=== PATIENT | female | born 2000 | race Caucasian/White ===

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

== ENCOUNTER 2022-07-07 21:38 | Emergency (ER) | payer OTHER ==
[~2022-07-07] VITALS: Ht 167.7 cm; Wt 81.4 kg
[2022-07-07] MEDS ORDERED: ONDA4TAB11 PO (21:59)
--- NOTE | 2022-07-07 21:59 | ED GI ---
General Chief Complaint: Lower Extremity Stated Complaint: VOMITING - DIARRHEA Nursing Triage Note: PT ARRIVAL TO ER VIA PRIVATE VEHICLE WITH COMPLAINTS OF N/V SINCE 1699. PT STATES THAT SHE HAS AN UPSET STOMACH, AND HAS TRIED SOME PEPTO WITH NO IMPROVEMENT. PT STATES THAT SHE HASN'T ATE OR DRANK MUCH TODAY. Source of Information: Patient Exam Limitations: No Limitations History of Present Illness Date Seen by Provider: Jul 07, 2022 Time Seen by Provider: 21:44 Initial Comments Patient to ER by private conveyance with her significant other and chief complaint that since 1699 today she been having nausea vomiting and nonbloody diarrhea. She took some Pepto-Bismol. She does not have anything for nausea. She is not having any fevers or chills. No abdominal pain. She has no other significant medical or surgical history. She has no sick contacts. She last ate at 1400, noodles and Gatorade. Allergies and Home Medications Allergies Uncoded Allergies: PENICILLIN (Adverse Reaction, Intermediate, Hives, 03/11/15) Patient Home Medication List Home Medication List Reviewed: Yes Hydrocodone/Acetaminophen (Hydrocodone/Acetaminophen 5 MG/325 MG TAB) 1 Each Tablet, 1 EACH PO Q6H PRN for PAIN-MODERATE Prescribed by: HIWOT WILSON on 08/21/18 1733 Mupirocin (Bactroban Tube) 22 Gm Oint, 22 GM EXT UD Prescribed by: RADHA MORE on 03/11/15 161 Ondansetron (Ondansetron Odt) 4 Mg Tab.rapdis, 4-8 MG PO Q6H PRN for NAUSEA/VOMITING Prescribed by: KERMIT RUIZ on 07/07/22 2159 Trazodone Hcl (Desyrel) 100 Mg Tablet, 100 MG PO HS, (Reported) Entered as Reported by: SHARON DANIELS on 03/11/15 1538 Trimethoprim/Sulfamethoxazole (Bactrim DS) 1 Ea Tablet, 1 TAB PO BID Prescribed by: RADHA MORE on 03/11/15 161 [Bcp] , (Reported) Entered as Reported by: SHARON DANIELS on 03/11/15 1538 Review of Systems Review of Systems Constitutional: No chills, No diaphoresis EENTM: No Blurred Vision, No Double Vision Respiratory: Denies Cough, Denies Shortness of Air Cardiovascular: Denies Chest Pain, Denies Lightheadedness Gastrointestinal: Denies Constipated; Diarrhea, Nausea, Vomiting Genitourinary: Denies Burning, Denies Drainage Musculoskeletal: No back pain, No joint pain All Other Systems Reviewed Negative Unless Noted: Yes Past Ioaziom-Ipfgvq-Gueuzi Hx Patient Social History Tobacco Use?: No Use of E-Cig and/or Vaping dev: No Substance use?: No Alcohol Use?: No Pt feels they are or have been: No Immunizations Up To Date Tetanus Booster (TDap): Less than 5yrs PED Vaccines UTD: Yes Influenza Vaccine Up-to-Date: No; Not Current Second COVID19 Vaccination Aniceto: 02/27 COVID19 Vaccine [employer] Consult[employer]: [employer] Seasonal Allergies Seasonal Allergies: No Past Medical History Surgeries: No Respiratory: No Cardiac: No Neurological: No Reproductive Disorders: Yes (BCP for poss early endometriosis) Gastrointestinal: No Musculoskeletal: No Endocrine: No Cancer: No Psychosocial: Yes (Panic disorder) Anxiety Integumentary: No Blood Disorders: No Family Medical History No Pertinent Family Hx Physical Exam Vital Signs Vital Signs - First Documented 07/07/22 21:45 Pulse 112 Resp 16 B/P (MAP) 133/80 (97) Pulse Ox 97 O2 Delivery Room Air Capillary Refill : Less Than 3 Seconds Height/Weight/BMI Height: 5'5.00" Weight: 155lbs. oz. [id number]; 28.00 BMI Method:Stated General Appearance: WD/WN, no apparent distress HEENT: PERRL/EOMI, TMs normal; No pharynx normal (Dry oral pharynx without any erythema or injection), No tonsillar exudate Neck: full range of motion, normal inspection Respiratory: no respiratory distress, no accessory muscle use Cardiovascular: normal peripheral pulses, regular rate, rhythm, no edema Peripheral Pulses: 2+ Radial Pulses (R), 2+ Radial Pulses (L) Gastrointestinal: normal bowel sounds, non tender, soft, no organomegaly Neurologic/Psychiatric: alert, normal mood/affect, oriented x 3 Progress/Results/Core Measures Results/Orders Lab Results Laboratory Tests Test 07/07/22 22:16 07/07/22 22:55 Range/Units White Blood Count 17.1 H 4.3-11.0 10^3/uL Red Blood Count 5.42 H 3.80-5.11 10^6/uL Hemoglobin 14.1 11.5-16.0 g/dL Hematocrit 44 35-52 % Mean Corpuscular Volume 80 80-99 fL Mean Corpuscular Hemoglobin 26 25-34 pg Mean Corpuscular Hemoglobin Concent 32 32-36 g/dL Red Cell Distribution Width 13.4 10.0-14.5 % Platelet Count 276 130-400 10^3/uL Mean Platelet Volume 11.3 9.0-12.2 fL Immature Granulocyte % (Auto) 0 % Neutrophils (%) (Auto) 86 H 42-75 % Lymphocytes (%) (Auto) 6 L 12-44 % Monocytes (%) (Auto) 7 0-12 % Eosinophils (%) (Auto) 0 0-10 % Basophils (%) (Auto) 0 0-10 % Neutrophils # (Auto) 14.7 H 1.8-7.8 10^3/uL Lymphocytes # (Auto) 1.1 1.0-4.0 10^3/uL Monocytes # (Auto) 1.1 H 0.0-1.0 10^3/uL Eosinophils # (Auto) 0.1 0.0-0.3 10^3/uL Basophils # (Auto) 0.1 0.0-0.1 10^3/uL Immature Granulocyte # (Auto) 0.1 0.0-0.1 10^3/uL Neutrophils % (Manual) 85 % Lymphocytes % (Manual) 6 % Monocytes % (Manual) 4 % Eosinophils % (Manual) 1 % Basophils % (Manual) 1 % Band Neutrophils 3 % Blood Morphology Comment NORMAL Sodium Level 141 135-145 MMOL/L Potassium Level 3.8 3.6-5.0 MMOL/L Chloride Level 107 98-107 MMOL/L Carbon Dioxide Level 19 L 21-32 MMOL/L Anion Gap 15 H 5-14 MMOL/L Blood Urea Nitrogen 9 7-18 MG/DL Creatinine 0.82 0.60-1.30 MG/DL Estimat Glomerular Filtration Rate 104 BUN/Creatinine Ratio 11 Glucose Level 125 H 70-105 MG/DL Calcium Level 9.7 8.5-10.1 MG/DL Corrected Calcium 8.5-10.1 MG/DL Total Bilirubin 0.5 0.1-1.0 MG/DL Aspartate Amino Transf (AST/SGOT) 20 5-34 U/L Alanine Aminotransferase (ALT/SGPT) 13 0-55 U/L Alkaline Phosphatase 97 40-136 U/L Total Protein 8.4 H 6.4-8.2 GM/DL Albumin 4.7 H 3.2-4.5 GM/DL Lipase 28 8-78 U/L My Orders Orders - KERMIT RUIZ Ed Iv/Invasive Line Start (07/07/22 21:50) Lactated Ringers (Lr 1000 Ml Iv Solution (07/07/22 22:00) Ondansetron Injection (Zofran Injectio (07/07/22 22:00) Pantoprazole Injection (Protonix Injecti (07/07/22 22:00) Rx-Ondansetron Po (Rx-Zofran Po) (07/07/22 22:00) Promethazine Injection (Phenergan Injec (07/07/22 22:45) Diphenhydramine Injection (Benadryl Inje (07/07/22 22:45) Cbc With Automated Diff (07/07/22 22:42) Comprehensive Metabolic Panel (07/07/22 22:42) Lipase (07/07/22 22:42) Ed Iv/Invasive Line Start (07/07/22 22:42) Ns Iv 500 Ml (Sodium Chloride 0.9%) (07/07/22 22:45) Loperamide Tablet (Imodium Tablet) (07/07/22 22:45) Manual Differential (07/07/22 22:16) Covid 19 Inhouse Test (07/07/22 23:19) Influenza A And B By Pcr (07/07/22 23:19) Isolation Central Supply Req (07/07/22 23:19) Medications Given in ED Current Medications Medications Dose Ordered Sig/Stuart Route Start Time Stop Time Status Last Admin Dose Admin Diphenhydramine HCl 25 mg ONCE ONCE IVP 07/07/22 22:45 07/07/22 22:46 DC 07/07/22 22:51 25 MG Lactated Ringer's 1,000 ml @ 0 mls/hr Q0M ONCE IV 07/07/22 22:00 07/07/22 22:01 DC 07/07/22 22:14 999 MLS/HR Loperamide HCl 4 mg ONCE ONCE PO 07/07/22 22:45 9/28/22 22:46 DC 07/07/22 22:51 4 MG Ondansetron HCl 8 mg ONCE ONCE IVP 07/07/22 22:00 07/07/22 22:01 DC 07/07/22 22:14 8 MG Pantoprazole 40 mg ONCE ONCE IV 07/07/22 22:00 07/07/22 22:01 DC 07/07/22 22:14 40 MG Promethazine HCl 25 mg ONCE ONCE IVP 07/07/22 22:45 07/07/22 22:46 DC 07/07/22 22:52 25 MG Sodium Chloride 500 ml @ 0 mls/hr Q0M ONCE IV 07/07/22 22:45 07/07/22 22:46 DC 07/07/22 22:57 999 MLS/HR Vital Signs/I&O 07/07/22 21:45 Pulse 112 Resp 16 B/P (MAP) 133/80 (97) Pulse Ox 97 O2 Delivery Room Air Blood Pressure Mean: 97 Progress Progress Note #1: Time: 21:54 Progress Note Patient has tachycardia and dry oral mucosa. Plan to give her a liter of lactated Ringer's, Zofran and Protonix. When she is feeling better we will send her home with some Zofran usual care instructions for a viral gastroenteritis/colitis. Progress Note #2: Time: 22:43 Progress Note Patient had another course of diarrhea and starting nausea with one episode of vomiting since she got the ondansetron. We will give her some Phenergan, Benadryl and another 500 cc of fluids. We will go ahead and check labs. Departure Impression Primary Impression: Gastroenteritis and colitis, viral Additional Impression: Mild dehydration Disposition: 01 HOME, SELF-CARE Condition: Stable Departure-Patient Inst. Decision time for Depature: 21:58 Referrals: [facility] (PCP/Family) Primary Care Physician Patient Instructions: Viral Gastroenteritis, Adult (DC), Diarrhea, Adult ED Add. Discharge Instructions: Stick to a bland diet of foods like bananas, rice, applesauce and toast until your diarrhea improves. Zofran 1 or 2 tablets every 6 hours as needed to control nausea and/or vomiting. Push lots of fluids especially water or sports drinks. Avoid greasy, spicy foods until your symptoms improve. Symptoms usually improve in less than 3 to 5 days. Return to the ER for any vomiting or diarrhea or follow-up with your primary care doctor if your symptoms persist for more than a week. All discharge instructions reviewed with patient and/or family. Voiced understanding. Scripts Promethazine HCl (Promethazine Tablet) 25 Mg Tablet 25 MG PO Q6H PRN for NAUSEA/VOMITING, #12 TAB 0 Refills Prov: KERMIT RUIZ 07/07/22 Ondansetron (Ondansetron Odt) 4 Mg Tab.rapdis 4-8 MG PO Q6H PRN for NAUSEA/VOMITING, #12 TAB 0 Refills Prov: KERMIT RUIZ 07/07/22 Work/School Note: Work Release Form Date Seen in the Emergency Department: Jul 07, 2022 Return to Work: Jul 10, 2022 Restrictions: No Restrictions KERMIT RUIZ Jul 07, 2022 21:59
[2022-07-07] MEDS ORDERED: LACTATED RINGERS 1,000 ML IV ONE (22:00)
[2022-07-07] MEDS ORDERED: RX-ONDANSETRON 4 MG ODT (ZOFRAN) PPK #4 PO STA (22:00)
[2022-07-07] MEDS ORDERED: ONDANSETRON 4 MG/2 ML (SDV) Z0FRAN IVP ONE (22:00)
[2022-07-07] MEDS ORDERED: PANTOPRAZOLE 40 MG (PROTONIX) VIAL IV ONE (22:00)
[2022-07-07] MEDS ORDERED: PROMETHAZINE INJ 25 MG/ML (PHENERGAN) AMP IVP ONE (22:45)
[2022-07-07] MEDS ORDERED: NS IV 500 ML 500 ML IV ONE (22:45)
[2022-07-07] MEDS ORDERED: LOPERAMIDE 2 MG (IMODIUM) TABLET PO ONE (22:45)
[2022-07-07] MEDS ORDERED: diphenhydrAMINE 50 MG/ML INJ (BENADRYL) IVP ONE (22:45)
[2022-07-07 22:47] LABS: BASOPHILS # (AUTO) 0.1 10^3/uL (0.0-0.1); BASOPHILS % (AUTO) 0 % (0-10); EOSINOPHILS # (AUTO) 0.1 10^3/uL (0.0-0.3); EOSINOPHILS % (AUTO) 0 % (0-10); HEMATOCRIT 44 % (35-52); HEMOGLOBIN 14.1 g/dL (11.5-16.0); LYMPHOCYTES # (AUTO) 1.1 10^3/uL (1.0-4.0); LYMPHOCYTES % (AUTO) 6 % (12-44); MEAN CORPUSCULAR HEMOGLOBIN 26 pg (25-34); MEAN CORPUSCULAR HGB CONC 32 g/dL (32-36); MEAN CORPUSCULAR VOLUME 80 fL (80-99); MEAN PLATELET VOLUME 11.3 fL (9.0-12.2); MONOCYTES # (AUTO) 1.1 10^3/uL (0.0-1.0); MONOCYTES % (AUTO) 7 % (0-12); NEUTROPHILS # (AUTO) 14.7 10^3/uL (1.8-7.8); NEUTROPHILS % (AUTO) 86 % (42-75); PLATELET COUNT 276 10^3/uL (130-400); WHITE BLOOD COUNT 17.1 10^3/uL (4.3-11.0)
[2022-07-07 22:49] LABS: ALBUMIN 4.7 GM/DL (3.2-4.5); CHLORIDE 107 MMOL/L (98-107); POTASSIUM 3.8 MMOL/L (3.6-5.0); SODIUM 141 MMOL/L (135-145)
[2022-07-07 22:50] LABS: CALCIUM 9.7 MG/DL (8.5-10.1)
[2022-07-07 22:51] LABS: GLUCOSE 125 MG/DL (70-105); TOTAL PROTEIN 8.4 GM/DL (6.4-8.2)
[2022-07-07 22:52] LABS: CARBON DIOXIDE 19 MMOL/L (21-32)
[2022-07-07 22:53] LABS: BILIRUBIN,TOTAL 0.5 MG/DL (0.1-1.0)
[2022-07-07 22:55] LABS: ALKALINE PHOSPHATASE 97 U/L (40-136); CREATININE SERUM 0.82 MG/DL (0.60-1.30); GFR ESTIMATED 104
[2022-07-07 22:56] LABS: BUN/CREATININE RATIO 11
[2022-07-07 22:58] LABS: ALANINE AMINOTRANSFERASE 13 U/L (0-55); LIPASE 28 U/L (8-78)
[2022-07-07 23:11] LABS: BAND NEUTROPHILS 3 %; BASOPHILS % (MANUAL) 1 %; EOSINOPHILS % (MANUAL) 1 %; LYMPHOCYTES % (MANUAL) 6 %; MONOCYTES % (MANUAL) 4 %; NEUTROPHILS % (MANUAL) 85 %; RBC MORPH NORMAL
[2022-07-07] MEDS ORDERED: PROM25TA14 PO (23:40)
[2022-07-07 23:50] VITALS: BP 124/78
== END 2022-07-07 23:51 | disposition home or self-care (01) ==
LOC: EDUNIT# 21:38 → ER 21:39
DX: A08.4 Viral intestinal infection, unspecified (principal); E86.0 Dehydration; Z20.822 Contact with and (suspected) exposure to COVID-19
CPT/HCPCS: 36415; 80053; 83690; 85007; 85027; 87636